=== PATIENT | male | born 1960 | race Hispanic/Latino ===

== ENCOUNTER 2024-10-31 15:10 | Emergency (ER) | payer OTHER, MEDICARE ==
[~2024-10-31] VITALS: Ht 175.3 cm; Wt 72.0 kg
[2024-10-31] VITALS (15 sets, daily range): BP systolic 103–131; BP diastolic 69–89
[2024-10-31] MEDS ORDERED: KETOROLAC TROMETHAMINE 30 MG/ML SDV IV ONE (16:05)
[2024-10-31] MEDS ORDERED: ORPHENADRINE CITRATE 30 MG/ML AMP IV ONE (16:05)
[2024-10-31 16:36] LABS: BASO% 0.1 % (0-3); EOS% 0.1 % (0-8); HEMATOCRIT 42.1 % (39.0-50.0); HEMOGLOBIN 14.1 g/dl (14.0-18.0); IMMATURE GRANULOCYTES 0.2 % (0.0-5.0); LYMPH% 10.9 % (15-41); MEAN CELL VOLUME 85.2 fL CALC (80.0-100.0); MEAN CORPUSCULAR HGB 28.5 pG CALC (26.0-32.0); MEAN CORPUSCULAR HGB CONC 33.5 g/dL CAL (32.0-36.0); MONO% 10.3 % (2-13); NEUT# 9.95 thou/uL (1.82-7.42); NEUT% 78.4 % (42-76); RED BLOOD COUNT 4.94 mill/uL (4.70-6.10); RED CELL DISTRI WIDTH 12.3 % (11.5-15.5)
[2024-10-31 16:48] LABS: ALBUMIN 3.7 g/dL (3.2-5.0); POTASSIUM 4.4 mmol/l (3.5-5.1); TOTAL PROTEIN 6.9 g/dL (6.3-8.2)
[2024-10-31 17:26] LABS: URINE BILIRUBIN - DIPSTICK Negative (NEGATIVE); URINE BLOOD DIPSTICK Negative (NEGATIVE); URINE GLUCOSE - DIPSTICK Negative (NEGATIVE); URINE KETONE 40 mg/dL (NEGATIVE); URINE LEUK ESTERASE Negative (NEGATIVE); URINE NITRITE - DIPSTICK Negative (Negative); URINE PH 5.5 (4.5-8.0); URINE PROTEIN - DIPSTICK 30 mg/dL (NEG-TRACE); URINE UROBILINOGEN - DIPSTICK 0.2 E.U./dL (0.2)
[2024-10-31 17:30] LABS: URINE COLOR Dark yellow
[2024-10-31 17:39] LABS: URINE MUCUS MODERATE hpf (NONE-FEW); URINE RBC 0-2 RBC/hpf (0-5)
[2024-10-31] MEDS ORDERED: NAPROXEN500 MG PO (18:40)
[2024-10-31] MEDS ORDERED: METHOCARBAMOL500 MG PO (18:40)
[2024-10-31] MEDS ORDERED: ZPAK PO (18:40)
== END 2024-10-31 19:10 | disposition home or self-care (01) | DRG 153 ==
LOC: ED 15:10
PROVIDERS: Nurse Practitioner
DX: J06.9 Acute upper respiratory infection, unspecified (principal)
CPT/HCPCS: J2360